=== PATIENT | male | born 1980 | race Caucasian/White ===

== ENCOUNTER 2019-07-18 17:15 | Emergency (ER) | payer OTHER ==
[~2019-07-18] VITALS: Ht 177.8 cm; Wt 81.7 kg
[~2019-07-18 17:15] MED LIST: ALBUTEROL2.5 MG/31 INH; NOHOMEMEDICATIONS; PREDNISONE 10 M10 MG PO; PRILOSEC 20 MG20 MG PO; ZPAK PO
[2019-07-18] MEDS ORDERED: DOXYCYCLINE 10100 MG PO (18:29)
[2019-07-18] MEDS ORDERED: NORCO 5-325 TA1 EAC1 PO (18:29)
[2019-07-18 18:51] VITALS: BP 148/78
== END 2019-07-18 18:52 | disposition home or self-care (01) ==
LOC: M.ERS 17:15
DX: L02.215 Cutaneous abscess of perineum (principal); F17.210 Nicotine dependence, cigarettes, uncomplicated; J45.909 Unspecified asthma, uncomplicated; Z86.14 Personal history of Methicillin resistant Staphylococcus aureus infection